=== PATIENT | female | born 1990 | race Caucasian/White ===

== ENCOUNTER 2017-05-09 12:10 | Observation (INO) | payer MEDICAID ==
[~2017-05-09] VITALS: Ht 165.1 cm; Wt 78.5 kg
[~2017-05-09 12:10] MED LIST: NOCURR
[2017-05-09 12:57] VITALS: BP 116/60
[2017-05-09] MEDS ORDERED: FERR-89 PO (12:59)
== END 2017-05-09 16:40 | disposition home or self-care (01) ==
LOC: 4S 12:10
PROVIDERS: ADMIT Obstetrics & Gynecology; ATTEND Obstetrics & Gynecology
DX: O26.893 Other specified pregnancy related conditions, third trimester (principal); R42 Dizziness and giddiness; O99.013 Anemia complicating pregnancy, third trimester; Z3A.33 33 weeks gestation of pregnancy
CPT/HCPCS: 59025; G0378

== ENCOUNTER 2017-06-04 16:53 | Observation (INO) | payer MEDICAID ==
[~2017-06-04] VITALS: Ht 165.1 cm; Wt 83.0 kg
[~2017-06-04 16:53] MED LIST changes: +FERR-89 PO
[2017-06-12 20:11] VITALS: BP 129/80
== END 2017-06-12 22:45 | disposition home or self-care (01) ==
LOC: 4S 06-12 19:19
PROVIDERS: ADMIT Obstetrics & Gynecology; ATTEND Obstetrics & Gynecology
DX: O62.9 Abnormality of forces of labor, unspecified (principal); O26.893 Other specified pregnancy related conditions, third trimester; R10.30 Lower abdominal pain, unspecified; Z3A.38 38 weeks gestation of pregnancy
CPT/HCPCS: 59025; G0378